=== PATIENT | male | born 1980 | race Caucasian/White ===

== ENCOUNTER 2022-01-26 21:58 | Emergency (ER) | payer BC, OTHER ==
[2022-01-26 22:12] VITALS: BP 132/80
[2022-01-26] MEDS ORDERED: MORPHINE SULFATE 4 MG INJ IM ONE (22:16)
[2022-01-26] MEDS ORDERED: MORPHINE SULFATE 4 MG INJ ONE (22:25)
--- NOTE | 2022-01-26 22:54 | ERPHSYRPT ---
- History of Present Illness Time Seen by Provider: 01/26/22 22:15 Source: patient Exam Limitations: no limitations Patient Subjective Stated Complaint: pt states he jumped off the back of truck and hit left leg on trail[place]. pt states it occured at 5 pm, but now is more pa inful. Triage Nursing Assessment: pt is alert and oriented, states he has 8/10 pain in l leg. no injury visible. pt is moaning and states that whole leg hurts. Physician History: 42 years old male presented in the ER with chief complaint of left knee/upper leg area pain moderate to severe sharp after he jumped at the back of a truck and hit a metal rail around 5 PM. He was able to walk initially but gradually pain is getting worse with some swelling around the knee as well. Not having difficulty weightbearing. Pain is radiating above and below the knee. No injury anywhere. Method of Injury: direct blow, fell Occurred: hours ago (4) Quality: sharpness Severity of Pain-Max: severe Severity of Pain-Current: severe Lower Extremities Pain: knee: left Modifying Factors: Improves With: immobilization. Worsens With: movement Associated Symptoms: unable to bear weight Allergies/Adverse Reactions: No Known Drug Allergies Allergy (Unverified 01/26/22 22:13) Hx Tetanus, Diphtheria Vaccination/Date Given: Yes Hx Influenza Vaccination/Date Given: Yes Hx Pneumococcal Vaccination/Date Given: No Travel Risk - International Travel Have you traveled outside of the country in past 3 weeks: No - Coronavirus Screening Are you exhibiting any of the following symptoms?: No Close contact with a COVID-19 positive Pt in past 14-21 Days: No - Vaccine Status Have you recieved a Covid-19 vaccination: No - Review of Systems Constitutional: No Symptoms Eyes: No Symptoms Ears, Nose, & Throat: No Symptoms Respiratory: No Symptoms Cardiac: No Symptoms Abdominal/Gastrointestinal: No Symptoms Genitourinary Symptoms: No Symptoms Musculoskeletal: Fall, Injury, Joint Pain Skin: No Symptoms Neurological: No Symptoms Endocrine: No Symptoms Hematologic/Lymphatic: No Symptoms - Past Medical History Pertinent Past Medical History: No - Past Surgical History Past Surgical History: No - Social History Smoking Status: Current every day smoker Drug Use: none Patient Lives Alone: No - Nursing Vital Signs Nursing Vital Signs: Initial Vital Signs Temperature 97.0 F 01/26/22 22:06 Pulse Rate 100 H 01/26/22 22:06 Respiratory Rate 18 01/26/22 22:06 Blood Pressure 132/80 01/26/22 22:06 O2 Sat by Pulse Oximetry 99 01/26/22 22:06 Pain Scale Pain Intensity 8 - Physical Exam General Appearance: no apparent distress, alert Eyes, Ears, Nose, Throat Exam: normal ENT inspection Neck Exam: normal inspection, full range of motion Cardiovascular/Respiratory Exam: normal breath sounds, regular rate/rhythm Gastrointestinal/Abdominal Exam: non-tender, soft Back Exam: normal inspection, normal range of motion, No CVA tenderness Hips Exam: bilateral: non-tender, normal inspection, normal range of motion, no evidence of injury Legs Exam: bilateral leg: normal inspection, normal range of motion, no evidence of injury Knees Exam: right knee: non-tender, normal inspection, normal range of motion, no evidence of injury, left knee: bone tenderness (Tibial plateau to), joint effusion, pain, soft tissue tenderness, swelling Ankle Exam: bilateral ankle: non-tender, normal inspection, normal range of motion, no evidence of injury Neuro/Tendon Exam: normal sensation Mental Status Exam: alert, oriented x 3, cooperative Skin Exam: normal color SpO2 Interpretation: normal SpO2: 99 O2 Delivery: Room Air Ordered Tests: Active Orders 24 hr Category Date Time Status KNEE (3 VIEWS) Stat Exams 01/26/22 22:25 Taken Medication Summary Discontinued Medications Generic Name Dose Route Start Last Admin Trade Name Chema PRN Reason Stop Dose Admin Morphine Sulfate 4 mg 01/26/22 22:16 01/26/22 22:26 Morphine Sulfate 4 Mg/Ml Injection IM 01/26/22 22:17 4 mg STAT ONE Administration Morphine Sulfate Confirm 01/26/22 22:25 Morphine Sulfate 4 Mg/Ml Injection Administered 01/26/22 22:26 Dose 4 mg .ROUTE .STK-MED ONE - Progress Progress: improved Progress Note: 01/26/22 22:51 Given morphine for symptomatic relief, feeling better on reevaluation but not completely resolved. Patient has some effusion. I have obtained x-rays which are negative for any fracture dislocation around left knee. Placed in a knee immobilizer, crutches, pain medication and outpatient orthopedic surgery follow- up recommended. Counseled pt/family regarding: diagnosis, need for follow-up, rad results - Departure Departure Disposition: Home Clinical Impression: Acute pain of left knee Condition: Stable Critical Care Time: No Referrals: DERRELL OLGUIN MD [Primary Care Provider] - Follow up/PCP as directed (1-2 days for reevaluation) KILLIAN - AGUSTIN CURTIS NP [NON-STAFF PHY W/O PRIVILEGES] - Follow up/PCP as directed (tomorrow morning for re evaluation ) Instructions: Contusion (DC), Knee Sprain (DC) Additional Instructions: Take pain medications as needed. Nonweightbearing. Intermittent ice application. Follow-up with orthopedic surgery for reevaluation tomorrow morning between 9:52 AM. Return to ER for increasing pain swelling, difficulty movements etc. Prescriptions: Hydrocodone/Acetaminophen [Hydrocodone-Acetamin 7.5-325] 1 each PO Q6HPRN PRN 3 Days #12 tablet MDD 4 PRN Reason: Pain Ibuprofen 600 mg PO Q6HPRN PRN 10 Days #20 tablet PRN Reason: Pain
[2022-01-26] MEDS ORDERED: NORCO 5/325 MG PO ONE (22:55)
[2022-01-26] MEDS ORDERED: NORCO 5/325 MG ONE (22:57)
[2022-01-26 23:10] VITALS: PULSE 79; O2SAT 98
--- NOTE | 2022-01-27 08:50 | XRAY ---
Indication: Pain following fall. Comparison: None 3 view left knee demonstrates minimal medial joint space narrowing and small nonspecific effusion. No other bony, articular, or soft tissue abnormalities.
== END 2022-01-26 23:10 | disposition home or self-care (01) ==
LOC: ED 21:58
DX: M25.562 Pain in left knee (principal); W22.09XA Striking against other stationary object, initial encounter; Z72.0 Tobacco use; Z79.891 Long term (current) use of opiate analgesic; Z28.310 Unvaccinated for COVID-19
CPT/HCPCS: 73562; 96372; 99283; J2270; L1830; A9270-GY